=== PATIENT | male | born 2000 | race Two or more races ===

== ENCOUNTER 2022-10-16 15:47 | Emergency (ER) | payer SELFPAY ==
[2022-10-16 16:08] VITALS: BP 121/61; PULSE 63; RESP 18; TEMP 98.2; BMI 21.9
[2022-10-16] MEDS ORDERED: ASPIRIN 325 MG TABLET PO ONE (17:48)
[2022-10-16] MEDS ORDERED: ACETAMINOPHEN 1000 MG/100 ML BAG IVPB ONE (17:48)
[2022-10-16] MEDS ORDERED: ASPIRIN 325 MG TABLET ONE (18:39)
[2022-10-16] MEDS ORDERED: ACETAMINOPHEN INJECTION 100 ML IVPB ONE (18:39)
[2022-10-16 18:47] LABS: BASO % 0.7 % (0-2.0); EOS % 3.4 % (0-4.5); LYMPH % 22.2 % (8-40); MCH 30.1 pg (25.7-33.7); MCHC 34.1 g/dl (32.0-35.9); MEAN CELL VOLUME 88.2 fl (80-96); MEAN PLT VOLUME 7.7 fl (7.5-11.1); NEUT % 63.7 % (42.8-82.8); PLATELET COUNT 311 10^3/uL (134-434); RBC 4.99 M/mm3 (4.00-5.60); RDW 13.2 % (11.9-15.9); WHITE BLOOD COUNT 9.6 K/mm3 (4.0-10.0)
[2022-10-16 19:25] LABS: POTASSIUM 4.4 mmol/L (3.5-5.1)
[2022-10-16 19:27] LABS: CALCIUM 8.9 mg/dL (8.5-10.1)
[2022-10-16 19:28] LABS: ALBUMIN 4.3 g/dl (3.4-5.0); BLOOD UREA NITROGEN 20.8 mg/dL (7-18); MAGNESIUM 2.3 mg/dL (1.8-2.4)
[2022-10-16 19:31] LABS: CREATININE 1.1 mg/dL (0.55-1.3)
[2022-10-16 19:33] LABS: BILIRUBIN,TOTAL 0.4 mg/dL (0.2-1); TOT PROT 7.6 g/dl (6.4-8.2)
[2022-10-16] MEDS ORDERED: CYCLOBENZAPRINE HCL 10 MG TABLET (FP) PO ONE (19:35)
[2022-10-16] MEDS ORDERED: SODIUM CHLORIDE 0.9% 500 ML INFUS.BAG IV ONE (19:35)
[2022-10-16] MEDS ORDERED: KETOROLAC TROMETHAMINE 30 MG/1 ML VIAL IM ONE (19:35)
[2022-10-16] MEDS ORDERED: KETOROLAC TROMETHAMINE 15 MG/ML VIAL ONE (20:09)
[2022-10-16] MEDS ORDERED: CYCLOBENZAPRINE HCL 10 MG TABLET (FP) ONE (20:09)
== END 2022-10-16 21:24 | disposition home or self-care (01) ==
LOC: JER 15:47
PROC: 3E033NZ Introduction of Analgesics, Hypnotics, Sedatives into Peripheral Vein, Percutaneous Approach (ICD-10-PCS; principal; 2022-10-16)
PROC: 3E0233Z Introduction of Anti-inflammatory into Muscle, Percutaneous Approach (ICD-10-PCS; 2022-10-16)
DX: R07.89 Other chest pain (principal)
CPT/HCPCS: 36415; 71046-TC-FY; 80053; 83735; 84443; 84484; 85025; 93005; 93010; 99285-25